=== PATIENT | male | born 1995 | race Caucasian/White ===

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

== ENCOUNTER 2020-08-17 20:06 | Emergency (ER) | payer MEDICAID, OTHER, SELFPAY ==
[~2020-08-17] VITALS: Ht 185.4 cm; Wt 103.7 kg
[2020-08-17] MEDS ORDERED: AMOX875T PO (20:13)
[2020-08-17] MEDS ORDERED: IBUP1TAB6 PO (20:14)
[2020-08-17] MEDS ORDERED: hydrOXYzine 50 MG TAB PO ONE (20:45)
[2020-08-17] MEDS ORDERED: HYDR-3363 PO (20:48)
[2020-08-17 21:15] VITALS: BP 144/81
== END 2020-08-17 21:23 | disposition home or self-care (01) ==
LOC: M ED 20:06
DX: F41.0 Panic disorder [episodic paroxysmal anxiety] (principal); K02.9 Dental caries, unspecified; F17.200 Nicotine dependence, unspecified, uncomplicated

== ENCOUNTER → 2020-09-10 | Outpatient (REF) | payer OTHER ==
[~2020-09-10] MED LIST: AMOX875T PO; HYDR-3363 PO; IBUP1TAB6 PO
[2020-09-10 15:09] LABS: ALBUMIN 4.9 GM/DL (3.2-5.2); ALT/SGPT 31 U/L (12-78); BILIRUBIN,TOTAL 0.4 MG/DL (0.2-1.0); BLOOD UREA NITROGEN 14 MG/DL (7-18); CALCIUM LEVEL 9.3 MG/DL (8.5-10.1); CARBON DIOXIDE LEVEL 30 MEQ/L (21-32); CHLORIDE LEVEL 106 MEQ/L (98-107); CHOLESTEROL LEVEL 153 MG/DL (<200); FREE T4 1.04 NG/DL (0.76-1.46); GLOMERULAR FILTRATION RATE > 60.0 (>60); GLUCOSE, FASTING 94 MG/DL (70-100); HDL CHOLESTEROL 45 MG/DL (>40); LDL CHOLESTEROL 97 MG/DL (<100); NON-HDL-C 108 MG/DL; POTASSIUM SERUM 4.7 MEQ/L (3.5-5.1); SODIUM LEVEL 140 MEQ/L (136-145); THYROID STIMULATING HORMONE 0.524 uIU/ML (0.358-3.740); TOTAL PROTEIN 7.1 GM/DL (6.4-8.2); TRIGLYCERIDES LEVEL 57 MG/DL (<150)
[2020-09-10 15:51] LABS: VITAMIN B12 LEVEL 351 PG/ML (247-911)
[2020-09-10 16:33] LABS: HEMOGLOBIN A1c 5.2 %
[2020-09-11 16:10] LABS: Lyme Disease IgG/IgM Antibodie <0.91 ISR (0.00-0.90); Lyme Disease IgM Ab Quantitati <0.80 index (0.00-0.79)
== END ==
LOC: M SFHCPLAZ 11:23
PROVIDERS: ATTEND Nurse Practitioner Family
DX: R07.89 Other chest pain (principal); Z13.228 Encounter for screening for other metabolic disorders; Z13.220 Encounter for screening for lipoid disorders; R20.0 Anesthesia of skin

== ENCOUNTER → 2020-09-10 | Outpatient (CLI) | payer OTHER, MEDICAID ==
--- NOTE | 2020-09-11 04:49 | REPPI ---
INDICATION: M54.2 CERVICAL PAIN COMPARISON: None. TECHNIQUE: AP, lateral, flexion/extension, bilateral oblique, and open-mouth views. FINDINGS: Alignment and lordosis is maintained. There is no evidence for acute fracture / compression injury or subluxation. No significant degenerative changes are appreciated. Oblique views demonstrate patent neural foramen. Open mouth view demonstrates normal C1-C2 articulation and odontoid process. IMPRESSION: Normal cervical spine series. <Electronically signed by Hector Jeffrey > 09/11/20 [id number]
== END ==
LOC: M PLAIMG 11:23
PROVIDERS: ATTEND Nurse Practitioner Family
DX: M54.2 Cervicalgia (principal)

== ENCOUNTER → 2020-10-11 | Outpatient (CLI) | payer OTHER ==
[~2020-10-11] MED LIST changes: +E-Z-GAS II EFFERVESCENT PACKET (SODIUM BICARB./CITRIC ACID/SIMETHICONE) As Ordered ONE; +E-Z-HD 98% w/w 340GM SUSP BTL As Ordered ONE; +E-Z-PAQUE 96% w/w SUSP 176GM BTL As Ordered ONE
--- NOTE | 2020-10-11 16:25 | REP ---
INDICATION: DYSPHAGIA *LABS 1ST*. COMPARISON: None. TECHNIQUE: The procedure was performed under the direct supervision of Dr. Pugh. The images were reviewed with Dr. Pugh. Liquid barium and gas producing crystals were given in the erect position as well as liquid barium in the prone oblique position in order to perform a double contrast upper GI examination. Additionally liquid barium was given at the end of the examination in order to perform a small bowel follow through. A combination od fluoroscopy, spot films and last image hold technology was utilized, 1.2 minutes of fluoro time was utilized for this procedure. FINDINGS: The kier drier film shows no organomegaly or pathological masses. The intestinal gas pattern is non-specific. There are densities over the left kidney which likely represent renal stones. The oral and pharyngeal stages of deglutition are unremarkable. Esophageal transport is prompt and efficient and there is no esophagitis, stricture, mucosal ring or hiatal hernia. The stomach chappell are normally outlined. The rugal folds are smooth and regular. There is no gastritis neoplasm or ulcer disease. Within the duodenum there are thickened folds with possible ulcers. The visualized portion of the proximal small bowel appears normal in course and caliber. The barium column was followed through the small bowel to the level of the terminal ileum. Small bowel transit time is approximately 15 minutes. During fluoroscopy gentle palpation shows all loops are freely movable and pliable. There are no fixed or angulated loops. The small bowel mucosal pattern is normal in course and caliber. There is no transition to suggest a partial small-bowel obstruction. Spot filming of the terminal ileum shows it to be unremarkable. IMPRESSION: 1. There are thickened folds in the duodenum with possible ulcers. 2. There are densities overlying the left kidney which likely represent renal stones. <Electronically signed by Ken Trammell > 10/11/20 1617 <Electronically signed by Alex Pugh > 10/11/20 1625
== END ==
LOC: M RAD 09:22
PROVIDERS: ATTEND Nurse Practitioner Family
DX: R13.10 Dysphagia, unspecified (principal); R10.9 Unspecified abdominal pain

== ENCOUNTER → 2020-10-24 | Outpatient (CLI) | payer OTHER ==
[~2020-10-24] MED LIST changes: -E-Z-GAS II EFFERVESCENT PACKET (SODIUM BICARB./CITRIC ACID/SIMETHICONE) As Ordered ONE; -E-Z-HD 98% w/w 340GM SUSP BTL As Ordered ONE; -E-Z-PAQUE 96% w/w SUSP 176GM BTL As Ordered ONE
--- NOTE | 2020-10-24 11:30 | REPVR ---
PROCEDURE INFORMATION: Exam: MR Thoracic Spine Without and With Contrast Exam date and time: 10/24/2020 11:12 AM Age: 25 years old Clinical indication: Pain in thoracic spine; Other: Numbness; Additional info: Cervicalgia, t spine pain TECHNIQUE: Imaging protocol: Multiplanar magnetic resonance images of the thoracic spine without and with intravenous contrast. Contrast material: PROHNACE; Contrast volume: 19 ml; Contrast route: INTRAVENOUS (IV); COMPARISON: No relevant prior studies available. FINDINGS: Vertebrae: Unremarkable. No acute fracture. No vertebral height loss. No subluxation. Spinal cord: Normal signal. No cord compression. T1-T2: No significant disc disease. No significant spinal canal stenosis. T2-T3: No significant disc disease. No significant spinal canal stenosis. T3-T4: No significant disc disease. No significant spinal canal stenosis. T4-T5: No significant disc disease. No significant spinal canal stenosis. T5-T6: No significant disc disease. No significant spinal canal stenosis. T6-T7: There is approximately 2 mm right paracentral protrusion. This contacts but does not deform the spinal cord. There is no evidence of spinal stenosis or neural foraminal narrowing. T7-T8: There is approximately 3 mm annular fissure and central protrusion which contacts but does not deform the spinal cord. There is no evidence of spinal stenosis or neural foraminal narrowing. T8-T9: There is approximately 3 mm annular fissure and central protrusion which contacts but does not deform the spinal cord. There is no evidence of spinal stenosis or neural foraminal narrowing. T9-T10: No significant disc disease. No significant spinal canal stenosis. T10-T11: No significant disc disease. No significant spinal canal stenosis. T11-T12: No significant disc disease. No significant spinal canal stenosis. Soft tissues: Unremarkable. Thyroid: There is approximately 5 mm nodule with increased T2 signal, low T1 signal, and enhancement in left lobe of thyroid.No follow-up is recommended. IMPRESSION: 1. Small thoracic disc protrusions at T6-T7, T7-T8, and T8-T9 without evidence of cord deformity, significant spinal stenosis, or neural foraminal narrowing. 2. Small left thyroid nodule. COMMENTS: Consistent with the [employer]'s Incidental Findings Committee white paper (J Am Ho Radiol 2015): In patients under 35 years old with an incidental thyroid nodule equal to or greater than [address], MRI or extrathyroidal US, further evaluation with dedicated thyroid US is recommended for patients with normal life expectancy and without comorbidities. For smaller nodules without suspicious features, no further evaluation or follow up is recommended. Electronically signed by: Lynette Seay On 10/24/2020 11:30:04 AM
--- NOTE | 2020-10-24 11:33 | REPVR ---
PROCEDURE INFORMATION: Exam: MR Cervical Spine Without and With Contrast Exam date and time: 10/24/2020 11:12 AM Age: 25 years old Clinical indication: Pain; Cervicalgia; Additional info: Cervicalgia, t spine pain TECHNIQUE: Imaging protocol: Multiplanar magnetic resonance images of the cervical spine without and with contrast. Contrast material: PROHANCE; Contrast volume: 19 ml; Contrast route: INTRAVENOUS (IV); COMPARISON: CR SPINE CERVICAL COMPLETE 09/10/2020 11:44 AM FINDINGS: Vertebrae: The cervical spine is normal in position and alignment. Craniocervical junction appears normal. Vertebral body marrow signal is unremarkable. Disc heights are well-preserved. No evidence of dehydration is seen. Spinal cord: Cervical spinal cord signal is normal without intrinsic or extrinsic lesions. No abnormal contrast enhancement. C2-C3: There is no significant disc bulge. There is no significant cord compression. There is no neural foraminal or spinal stenosis. C3-C4: There is no significant disc bulge or protrusion. There is no significant cord compression. There is no neural foraminal or spinal stenosis. C4-C5: There is no significant disc bulge or protrusion. There is no significant cord compression. There is no neural foraminal or spinal stenosis. C5-C6: There is no significant disc bulge or protrusion. There is no significant cord compression. There is no neural foraminal or spinal stenosis. C6-C7: There is no significant disc bulge or protrusion. There is no significant cord compression. There is no neural foraminal or spinal stenosis. C7-T1: There is no significant disc bulge or protrusion. There is no significant cord compression. There is no neural foraminal or spinal stenosis. Soft tissues: Unremarkable. Paranasal sinuses: There is a prominent right maxillary sinus retention cyst or polyp. Thyroid: Small left thyroid nodule with recommendations described on thoracic spine MRI. Vertebral arteries: Expected flow voids in the vertebral arteries. IMPRESSION: Essentially unremarkable cervical spine MRI. No cord compression, spinal stenosis, or neural foraminal narrowing. COMMENTS: Consistent with the [employer]'s Incidental Findings Committee white paper (J Am Ho Radiol 2015): In patients under 35 years old with an incidental thyroid nodule equal to or greater than [address], MRI or extrathyroidal US, further evaluation with dedicated thyroid US is recommended for patients with normal life expectancy and without comorbidities. For smaller nodules without suspicious features, no further evaluation or follow up is recommended. Electronically signed by: Lynette Seay On 10/24/2020 11:33:04 AM
== END ==
LOC: M PLARAD 09:24
PROVIDERS: ATTEND Physical Medicine & Rehabilitation
DX: M54.2 Cervicalgia (principal); M51.24 Other intervertebral disc displacement, thoracic region

== ENCOUNTER → 2021-01-09 | Outpatient (CLI) | payer OTHER | LOC: M WUC 11:32 | PROVIDERS: ATTEND Nurse Practitioner Family | DX: R20.0 Anesthesia of skin (principal) ==

== ENCOUNTER → 2021-03-12 | Outpatient (CLI) | payer OTHER ==
[2021-03-12 11:19] LABS: BASO % 0.3 % (0.0-1.0); EOS # 0.2 10^3/uL (0.0-0.5); EOS % 1.7 % (0.0-3.0); HEMATOCRIT 43.3 % (42.0-52.0); HEMOGLOBIN 14.7 g/dl (13.5-17.5); LYMPH # 2.2 10^3/uL (1.5-5.0); LYMPH % 15.8 % (24.0-44.0); MEAN CORPUSCULAR HGB CONC 33.9 g/dl (32.0-36.5); MEAN CORPUSCULAR VOLUME 94.3 fl (80.0-96.0); MONO # 0.8 10^3/uL (0.0-0.8); NEUTROPHILS # 10.4 10^3/uL (1.5-8.5); NEUTROPHILS % 75.8 % (36.0-66.0); PLATELET COUNT, AUTOMATED 241 10^3/uL (150-450); RED BLOOD COUNT 4.59 10^6/uL (4.30-6.10); WHITE BLOOD COUNT 13.7 10^3/uL (4.0-10.0)
[2021-03-12 11:43] LABS: ERYTHROCYTE SEDIMENTATION RATE 1 mm/hr (0-15)
[2021-03-12 12:09] LABS: ALT/SGPT 31 U/L (12-78); BILIRUBIN,TOTAL 0.6 MG/DL (0.2-1.0); BLOOD UREA NITROGEN 18 MG/DL (7-18); CALCIUM LEVEL 8.9 MG/DL (8.5-10.1); CARBON DIOXIDE LEVEL 29 MEQ/L (21-32); CHLORIDE LEVEL 106 MEQ/L (98-107); CREATININE FOR GFR 0.95 MG/DL (0.70-1.30); GLOMERULAR FILTRATION RATE > 60.0 (>60); GLUCOSE, FASTING 77 MG/DL (70-100); POTASSIUM SERUM 4.1 MEQ/L (3.5-5.1); RHEUMATOID FACTOR QUANT < 10.0 IU/ML (<15.0); SODIUM LEVEL 142 MEQ/L (136-145); TOTAL PROTEIN 6.8 GM/DL (6.4-8.2)
[2021-03-12 12:14] LABS: FOLATE 14.4 NG/ML (>5.4); VITAMIN B12 LEVEL 617 PG/ML (247-911)
[2021-03-13 13:11] LABS: ANTINUCLEAR ANTIBODIES DIRECT Negative (Negative)
== END ==
LOC: M PLALAB 09:06
PROVIDERS: ATTEND Nurse Practitioner Family
DX: R10.9 Unspecified abdominal pain (principal); M25.50 Pain in unspecified joint; E53.8 Deficiency of other specified B group vitamins

== ENCOUNTER → 2021-03-19 | Outpatient (CLI) | payer OTHER ==
[~2021-03-19] MED LIST changes: +GASTROGRAFIN SOLUTION 30ML (Q9963) ONE; +ISOVUE-370 76% 100ML VIAL ONE
--- NOTE | 2021-03-19 14:22 | REP ---
INDICATION: ABD PAIN. COMPARISON: None. TECHNIQUE: Standard helical technique after the intravenous administration of 100 cc Isovue 370. Oral bowel preparatory contrast was also administered prior to the exam. FINDINGS: The lung bases are clear. The liver, gallbladder, spleen, pancreas, adrenal glands, and right kidney are within normal limits. Although intravenous contrast has been administered and there are no precontrast images to review 3 nonobstructing left nephroliths are identified and all measuring approximately 4 mm. The kidneys are otherwise unremarkable. The abdominal aorta and para-aortic regions are within normal limits. Nonenlarged mesenteric lymph nodes are seen diffusely throughout the mesentery. There is no evidence of a mass or rina adenopathy. The imaged bowel loops are unremarkable. There is no evidence of free fluid or free air. Bone window technique throughout the examination shows the osseous structures to be within normal limits. IMPRESSION: 1. Left nephroliths as described above. 2. Nonspecific finding of multiple but nonenlarged lymph nodes in the mesentery. Follow-up if clinically relevant. 3. Other findings as described above. <Electronically signed by Stephan Reyes > 03/19/21 [id number]
== END ==
LOC: M PLAIMG 12:55
PROVIDERS: ATTEND Nurse Practitioner Family
DX: N20.0 Calculus of kidney (principal)
CPT/HCPCS: 74160; Q9963; Q9967